=== PATIENT | female | born 1995 | race Caucasian/White ===

== ENCOUNTER 2020-09-24 13:27 | Emergency (ER) | payer SELFPAY ==
[~2020-09-24] VITALS: Ht 162.6 cm; Wt 97.5 kg
--- NOTE | 2020-09-24 13:52 | NUR ---
WAIT AT LOBBY. HANDED ON URINE CUP.
[2020-09-24 14:46] LABS: BASOPHILS % (AUTO) 0.2 % (0.0-2.0); EOSINOPHILS % (AUTO) 0.1 % (0.0-4.0); HEMATOCRIT 38.9 % (36-48); HEMOGLOBIN 12.9 g/dL (12.0-16.0); LYMPHOCYTES # (AUTO) 1.7 K/uL (2.5-16.5); LYMPHOCYTES % (AUTO) 9.7 % (20.5-51.1); MEAN CORPUSCULAR HEMOGLOBIN 29 pg (27-31); MEAN CORPUSCULAR HGB CONC 33 g/dL (33-37); MONOCYTES # (AUTO) 0.9 K/uL (0.8-1.0); MONOCYTES % (AUTO) 5.3 % (1.7-9.3); NEUTROPHILS # (AUTO) 14.5 K/uL (1.8-7.7); NEUTROPHILS % (AUTO) 84.7 % (42.2-75.2); PLATELET COUNT (AUTO) 437 K/uL (140-450); RED BLOOD CELL COUNT(AUTO) 4.48 MIL/uL (4.20-5.40); RED CELL DISTRIBUTION WIDTH 13.2 % (11.6-13.7); WHITE BLOOD COUNT (AUTO) 17.1 K/uL (4.8-10.8)
[2020-09-24 14:50] LABS: APPEARANCE,URINE CLEAR (CLEAR); BILIRUBIN,URINE NEGATIVE (NEGATIVE); BLOOD, URINE 2+ (NEGATIVE); COLOR,URINE YELLOW (YELLOW); LEUKOCYTE ESTERASE ,URINE 3+ (NEGATIVE); NITRITE, URINE POSITIVE (NEGATIVE); PH,URINE 5.5 (5.0-9.0); UGLUCOSE NEGATIVE (NEGATIVE)
--- NOTE | 2020-09-24 14:59 | NUR ---
PATIENT AMBULATED TO ER BED 12
[2020-09-24 15:00] LABS: ALBUMIN 3.2 g/dL (3.4-5.0); ANION GAP 13.6 (8-16); CARBON DIOXIDE 24.5 mmol/L (21-32); CREATININE 0.7 mg/dL (0.6-1.3); POTASSIUM 4.1 mmol/L (3.5-5.1); TOTAL BILIRUBIN 0.5 mg/dL (0.0-1.0)
--- NOTE | 2020-09-24 15:05 | NUR ---
PT C/O RIGHT LOWER BACK PAIN AND RT SUPRAPUBIC PAIN X 8 DAYS AND N/V X TODAY. DENIES FEVER, CHILLS, DSYURIA AT THIS TIME. SKIN IS PINK/WARM/DRY; AAOX4 WITH EVEN AND STEADY GAIT; LUNGS CLEAR BL; HR EVEN AND REGULAR; PT DENIES ANY FEVER, CP, SOB, OR COUGH AT THIS TIME; PATIENT STATES PAIN OF 8/10 AT THIS TIME; VSS; PATIENT POSITIONED FOR COMFORT; HOB ELEVATED; BEDRAILS UP X1; BED DOWN. ER MD MADE AWARE OF PT STATUS.
[2020-09-24 15:10] LABS: RBC,URINE 11-20 (MOD) /HPF (0-5); WBC,URINE 60-80 /HPF (0-5)
[2020-09-24] MEDS ORDERED: cefTRIAXone 1,000 MG VIAL ONE (15:31)
--- NOTE | 2020-09-24 15:48 | NUR ---
PT IS BEING TAKEN TO CT SCAN VIA .
[2020-09-24 16:46] VITALS: BP 118/75
--- NOTE | 2020-09-24 16:46 | NUR ---
Patient discharged with v/s stable. Written and verbal after care instructions given and explained. Patient alert, oriented and verbalized understanding of instructions. Ambulatory with steady gait. All questions addressed prior to discharge. ID band removed. Patient advised to follow up with PMD. Rx of Tylenol, Zofran, and Keflex given. Patient educated on indication of medication including possible reaction and side effects. Opportunity to ask questions provided and answered.
== END 2020-09-24 16:46 | disposition home or self-care (01) ==
LOC: MED 13:27
DX: N10 Acute pyelonephritis (principal)
CPT/HCPCS: 36415; 74176; 80053; 81001; 81025; 85025; 87086; 96360; 99284; J0696; J7060; 96365

== ENCOUNTER 2021-02-18 18:48 | Emergency (ER) | payer MEDICAID ==
[~2021-02-18] VITALS: Ht 162.6 cm; Wt 99.8 kg
[2021-02-18 18:52] VITALS: BP 124/57
[2021-02-18] MEDS ORDERED: KETOROLAC 30 MG/ML VIAL IM ONE (20:05)
[2021-02-18] MEDS ORDERED: ONDANSETRON 4 MG ODT PO ONE (20:05)
--- NOTE | 2021-02-18 20:05 | NUR ---
PT AMBULATED TO BED 12
--- NOTE | 2021-02-18 20:05 | NUR ---
26 Y/O FEMALE ARRIVED TO THE ED WITH C/O FLANK PAIN. THE PAIN RADIATES TO THE LOWER BACK. PATIENT STATES PAIN 8/10. PATIENT REPORTS DIZZINESS, N/V FOR 3 DAYS AND HAS VOMITED X3 TODAY. ABD IS SOFT, NON-DISTENDED. PATIENT REPORTS NO DIFFICULTY PASSING STOOL AND URINE. PT DENIES ANY FEVER, CP, SOB, OR COUGH AT THIS TIME. PMH: N/A ALLERGIES: PENICILLINS
--- NOTE | 2021-02-18 20:31 | NUR ---
PT TAKEN TO CT VIA W/C
[2021-02-18 20:37] LABS: BASOPHILS % (AUTO) 0.5 % (0.0-2.0); EOSINOPHILS # (AUTO) 0.1 K/uL (0-0.4); HEMATOCRIT 38.1 % (36-48); HEMOGLOBIN 12.9 g/dL (12.0-16.0); LYMPHOCYTES % (AUTO) 19.3 % (20.5-51.1); MEAN CORPUSCULAR HEMOGLOBIN 30 pg (27-31); MEAN CORPUSCULAR HGB CONC 34 g/dL (33-37); MEAN CORPUSCULAR VOLUME 87.1 fL (80-94); MONOCYTES # (AUTO) 1.6 K/uL (0.8-1.0); MONOCYTES % (AUTO) 15.8 % (1.7-9.3); NEUTROPHILS # (AUTO) 6.5 K/uL (1.8-7.7); NEUTROPHILS % (AUTO) 63.4 % (42.2-75.2); PLATELET COUNT (AUTO) 365 K/uL (140-450); RED BLOOD CELL COUNT(AUTO) 4.38 MIL/uL (4.20-5.40); RED CELL DISTRIBUTION WIDTH 13.5 % (11.6-13.7); WHITE BLOOD COUNT (AUTO) 10.2 K/uL (4.8-10.8)
--- NOTE | 2021-02-18 20:42 | NUR ---
PT BACK FROM CT VIA W/C
[2021-02-18 20:49] LABS: ALBUMIN 3.1 g/dL (3.4-5.0); ANION GAP 12.3 (8-16); CARBON DIOXIDE 24.5 mmol/L (21-32); CREATININE 0.7 mg/dL (0.6-1.3); POTASSIUM 3.8 mmol/L (3.5-5.1); TOTAL BILIRUBIN 0.4 mg/dL (0.0-1.0)
[2021-02-18] MEDS ORDERED: IBUP-2230 PO (22:22)
[2021-02-18 22:26] VITALS: BP 124/57
--- NOTE | 2021-02-18 22:26 | NUR ---
Patient discharged with v/s stable AND PT REPORTS PAIN AT A 0/10. Written and verbal after care instructions given and explained. Patient alert, oriented and verbalized understanding of instructions. Ambulatory with steady gait. All questions addressed prior to discharge. ID band removed. Patient advised to follow up with PMD. Rx of IBUPROFEN given. Patient educated on indication of medication including possible reaction and side effects. Opportunity to ask questions provided and answered.
== END 2021-02-18 22:26 | disposition home or self-care (01) ==
LOC: MED 18:48
DX: N20.0 Calculus of kidney (principal); Z88.0 Allergy status to penicillin
CPT/HCPCS: 36415; 74176; 80053; 81002; 81025; 85025; 96372; 99284; J1885; Q0162

== ENCOUNTER 2023-08-17 18:50 | Emergency (ER) | payer MEDICAID ==
[~2023-08-17] VITALS: Ht 162.6 cm; Wt 74.8 kg
[~2023-08-17 18:50] MED LIST: IBUP-2230 PO
[2023-08-17 19:00] VITALS: BP 114/81; PULSE 61; RESP 14; TEMP 98.3; O2SAT 99
[2023-08-17] MEDS ORDERED: DICYCLOMINE HCL LIQUID 20 MG, ALUMINUM HYD/MAG/SIMETHICONE 30 ML, LIDOCAINE VISCOUS 2% ... PO ONE ×3 (20:15)
[2023-08-17] MEDS ORDERED: ALUMINUM HYD/MAG/SIMETHICONE 30 ML UDC ONE (21:08)
[2023-08-17] MEDS ORDERED: DICYCLOMINE HCL LIQUID 10 MG/5 ML UDC ONE (21:08)
[2023-08-17] MEDS ORDERED: FAMO40SU5 PO (21:45)
[2023-08-17 22:20] VITALS: BP 108/66; PULSE 65; RESP 12; O2SAT 99
== END 2023-08-17 22:20 | disposition home or self-care (01) ==
LOC: MED 18:50
DX: K29.70 Gastritis, unspecified, without bleeding (principal); Z88.0 Allergy status to penicillin; Z79.899 Other long term (current) drug therapy
CPT/HCPCS: 71045; 81025; 93005; 99285